=== PATIENT | female | born 1990 | race Caucasian/White ===

== ENCOUNTER 2022-09-22 22:01 | Emergency (ER) | payer BC, MEDICAID ==
[~2022-09-22] VITALS: Ht 154.9 cm; Wt 54.4 kg
[~2022-09-22 22:01] MED LIST: DOXY-745 PO
[2022-09-22 22:24] VITALS: BP 106/75
--- NOTE | 2022-09-22 23:09 | NUR ---
PT BIBS WITH C/O ABSCESS UNDER R ARMPIT. PT STATES TENDERNESS, DENIES HX OF S/SX OF ABSCESS. DENIES FEVER OR CHILLS, ILLICIT DRUG USE. PT IS AAOX4, NAD, VSS.
--- NOTE | 2022-09-22 23:15 | NUR ---
CBG 90
[2022-09-23 00:16] LABS: BILIRUBIN,URINE NEGATIVE (NEGATIVE); BLOOD, URINE TRACE-I (NEGATIVE); COLOR,URINE YELLOW (YELLOW); LEUKOCYTE ESTERASE ,URINE TRACE (NEGATIVE); NITRITE, URINE POSITIVE (NEGATIVE); UGLUCOSE NEGATIVE (NEGATIVE)
[2022-09-23 00:18] LABS: APPEARANCE,URINE CLOUDY (CLEAR)
[2022-09-23] MEDS ORDERED: SULF-59 PO (00:24)
[2022-09-23] MEDS ORDERED: CEPH-588 PO (00:24)
[2022-09-23 00:33] LABS: OTHER CASTS, URINE EPITHELIAL CASTS 1+ /LPF (None Seen)
[2022-09-23] MEDS ORDERED: cephALEXin 500 MG CAP PO ONE (00:35)
[2022-09-23 00:56] VITALS: BP 115/62
== END 2022-09-23 00:56 | disposition home or self-care (01) ==
LOC: MED 22:01
DX: L02.411 Cutaneous abscess of right axilla (principal); L03.111 Cellulitis of right axilla; N30.90 Cystitis, unspecified without hematuria; Z79.899 Other long term (current) drug therapy
CPT/HCPCS: 81001; 81025; 99283